=== PATIENT | male | born 1980 | race American Indian/Alaskan Native ===

== ENCOUNTER 2016-11-28 15:23 | Emergency (ER) | payer OTHER ==
[2016-11-28] MEDS ORDERED: TORADOL IM ONE (19:33)
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
[2016-11-28 21:32] VITALS: BP 128/83
== END 2016-11-28 21:33 | disposition home or self-care (01) ==
LOC: ED 15:23
DX: M25.511 Pain in right shoulder (principal); M25.512 Pain in left shoulder; M54.9 Dorsalgia, unspecified; R51 Headache; F10.129 Alcohol abuse with intoxication, unspecified
CPT/HCPCS: 71010; 72040; 72100; 96372; 99283; J1885

== ENCOUNTER 2016-12-26 18:44 | Emergency (ER) | payer SELFPAY ==
[2016-12-26] MEDS ORDERED: FLEXERIL PO ONE (21:06)
[2016-12-26] MEDS ORDERED: NORCO 7.5/325 PO ONE (21:06)
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
[2016-12-26] MEDS ORDERED: BENADRYL PO ONE (22:31)
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
[2016-12-26 23:43] LABS: Hematocrit 41.7 % (35.5-45.6); Hemoglobin 13.8 gm/dl (11.8-15.2); Mean Corpuscular HGB Conc 33 % (32-34); Mean Corpuscular Hemoglobin 32 pg (28-32); Mean Corpuscular Volume 97 fl (84-94); Platelet Count 227 K/mm3 (140-440); Red Blood Count 4.29 M/mm3 (3.65-5.03); Red Cell Distribution Width 13.9 % (13.2-15.2); White Blood Count 9.1 K/mm3 (4.5-11.0)
[2016-12-27 00:06] VITALS: BP 145/85
== END 2016-12-27 00:07 | disposition home or self-care (01) ==
LOC: ED 18:44
DX: M54.5 Low back pain (principal); L25.9 Unspecified contact dermatitis, unspecified cause; F17.210 Nicotine dependence, cigarettes, uncomplicated
CPT/HCPCS: 36415; 72131; 85027; 87040; 99284

== ENCOUNTER 2017-04-12 18:12 | Emergency (ER) | payer SELFPAY ==
[2017-04-12 19:23] VITALS: BP 119/83
== END 2017-04-12 21:00 | disposition left against medical advice (07) ==
LOC: ED 18:12
DX: M54.9 Dorsalgia, unspecified (principal); Z53.21 Procedure and treatment not carried out due to patient leaving prior to being seen by health care provider